=== PATIENT | female | born 2000 | race Caucasian/White ===

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

== ENCOUNTER 2020-08-21 16:49 | Emergency (ER) | payer BC ==
[~2020-08-21] VITALS: Ht 160 cm; Wt 45.5 kg
[2020-08-21 17:34] LABS: STREP SCREEN NEGATIVE
[2020-08-21 18:10] VITALS: BP 126/90; PULSE 64; TEMP 97.9
== END 2020-08-21 18:10 | disposition home or self-care (01) ==
LOC: COL.ER 16:49
PROVIDERS: Emergency Medicine
DX: J02.8 Acute pharyngitis due to other specified organisms (principal); F41.0 Panic disorder [episodic paroxysmal anxiety]; F17.210 Nicotine dependence, cigarettes, uncomplicated; Z88.0 Allergy status to penicillin
CPT/HCPCS: J1100

== ENCOUNTER 2021-06-10 07:36 | Emergency (ER) | payer BC ==
[~2021-06-10] VITALS: Ht 160 cm; Wt 43.6 kg
[2021-06-10 07:48] VITALS: BP 119/77; TEMP 98
[2021-06-10] MEDS ORDERED: ZOFRAN ODT4 MG PO (08:33)
[2021-06-10 09:22] VITALS: PULSE 95
== END 2021-06-10 09:22 | disposition home or self-care (01) ==
LOC: COL.ER 07:36
DX: U07.1 COVID-19 (principal); J45.909 Unspecified asthma, uncomplicated; F17.200 Nicotine dependence, unspecified, uncomplicated

== ENCOUNTER 2021-08-21 16:47 | Emergency (ER) | payer BC ==
[~2021-08-21] VITALS: Ht 160 cm; Wt 48.6 kg
[~2021-08-21 16:47] MED LIST: ZOFRAN ODT4 MG PO
[2021-08-21 17:05] VITALS: TEMP 98.3
[2021-08-21 18:13] LABS: HEMATOCRIT 38.7 % (37.0-47.0); HEMOGLOBIN 13.7 g/dl (12.5-16.0); MEAN CELL VOLUME 84 fl (80.0-100.0); MEAN CORPUSCULAR HEMOGLOBIN 30 pg (27-31); MEAN CORPUSCULAR HGB CONC 35 g/dl (33.0-37.0); MEAN PLATELET VOLUME 9.3 fl (7.4-10.4); PLATELET COUNT 167 K/mm3 (130-400); REDCELL DISTRIBUTION WIDTH-CV 12.5 % (11.5-14.5)
[2021-08-21 18:25] LABS: COLLECTION METHOD CLEAN CATCH
[2021-08-21 18:32] LABS: ALBUMIN 4.3 gm/dL (3.5-5.0); BILIRUBIN,TOTAL 0.5 mg/dL (0.2-1.2); CALCIUM 9.5 mg/dL (8.4-10.2); CREATININE, serum 0.65 mg/dL (0.57-1.11); POTASSIUM 3.4 mmol/L (3.5-4.5)
[2021-08-21 18:36] LABS: MUCOUS Present (NOT PRESENT); PH 5 (5-8); URINE APPEARANCE Hazy (CLEAR/HAZY); URINE BACTERIA None Seen /hpf (NONE SEEN); URINE BILIRUBIN Negative (NEGATIVE); URINE BLOOD Negative (NEGATIVE); URINE COLOR Yellow (YELLOW); URINE GLUCOSE Negative (NEGATIVE); URINE KETONE 2+ (NEGATIVE); URINE LEUKOCYTE ESTERASE Negative (NEGATIVE); URINE NITRATE Negative (NEGATIVE); URINE PROTEIN(semi-quant) 1+ (NEGATIVE); URINE RBC 0-2 /hpf (0-2)
[2021-08-21 18:48] LABS: BAND 14 % (0-10); EOSINOPHIL 1 % (0-4); LYMPHOCYTE 3 % (20.0-51.0); NEUTROPHILS 76 % (42.0-75.2); PLATELET ESTIMATE NORMAL (NORMAL)
[2021-08-21 19:19] LABS: STREP SCREEN NEGATIVE
[2021-08-21] MEDS ORDERED: REGLAN 10MG10 MG/TAB PO (20:35)
[2021-08-21 20:49] VITALS: BP 98/60; PULSE 111
== END 2021-08-21 20:45 | disposition home or self-care (01) ==
LOC: COL.ER 16:47
PROVIDERS: Physician Assistant
DX: O21.9 Vomiting of pregnancy, unspecified (principal); O99.119 Other diseases of the blood and blood-forming organs and certain disorders involving the immune mechanism complicating pregnancy, unspecified trimester; D72.829 Elevated white blood cell count, unspecified; Z3A.00 Weeks of gestation of pregnancy not specified; Z20.822 Contact with and (suspected) exposure to COVID-19
CPT/HCPCS: J2765; J7030

== ENCOUNTER 2021-10-18 21:18 | Emergency (ER) | payer BC ==
[~2021-10-18 21:18] MED LIST changes: +REGLAN 10MG10 MG/TAB PO
[2021-10-18 21:23] VITALS: TEMP 97.8
[2021-10-18 21:52] LABS: BASO % 0.3 % (0.0-2.0); EOS # 0.1 K/mm3 (0.0-0.7); EOS % 0.8 % (0.0-4.0); GRAN # 6.7 K/mm3 (1.4-6.5); GRAN % 64.6 % (42.2-75.2); HEMATOCRIT 33.9 % (37.0-47.0); HEMOGLOBIN 11.5 g/dl (12.5-16.0); LYMPH # 2.7 K/mm3 (1.2-3.4); LYMPH % 26.1 % (20.0-51.0); MEAN CELL VOLUME 91 fl (80.0-100.0); MEAN CORPUSCULAR HEMOGLOBIN 31 pg (27-31); MEAN CORPUSCULAR HGB CONC 34 g/dl (33.0-37.0); MEAN PLATELET VOLUME 9.4 fl (7.4-10.4); MONO # 0.8 K/mm3 (0.1-0.6); PLATELET COUNT 166 K/mm3 (130-400); RED BLOOD COUNT 3.73 M/mm3 (4.10-5.30)
[2021-10-18 22:04] LABS: ALBUMIN 3.5 gm/dL (3.5-5.0); ANION GAP 10 mmol/L (7-16); BLOOD UREA NITROGEN 10 mg/dL (7-19); CALCIUM 9.1 mg/dL (8.4-10.2); CARBON DIOXIDE 23 mmol/L (22-29); CHLORIDE 104 mmol/L (98-107); CREATININE, serum 0.62 mg/dL (0.57-1.11); GLUCOSE 84 mg/dL (70-99); PHOSPHOROUS 4.1 mg/dL (2.3-4.7); POTASSIUM 3.8 mmol/L (3.5-4.5); SODIUM 137 mmol/L (136-145)
[2021-10-18 22:12] LABS: TROPONIN-I < 0.010 ng/mL (0.00-0.033)
[2021-10-18 22:45] VITALS: BP 107/64; PULSE 75
== END 2021-10-18 22:45 | disposition home or self-care (01) ==
LOC: COL.ER 21:18
PROVIDERS: Emergency Medicine
DX: O99.351 Diseases of the nervous system complicating pregnancy, first trimester (principal); R55 Syncope and collapse; O26.891 Other specified pregnancy related conditions, first trimester; R94.31 Abnormal electrocardiogram [ECG] [EKG]; O99.331 Smoking (tobacco) complicating pregnancy, first trimester; F17.210 Nicotine dependence, cigarettes, uncomplicated; Z3A.12 12 weeks gestation of pregnancy; Z28.310 Unvaccinated for COVID-19
CPT/HCPCS: J7030

== ENCOUNTER 2022-04-03 14:17 | Outpatient (CLI) | payer BC ==
[~2022-04-03] VITALS: Ht 162.6 cm; Wt 72.3 kg
--- NOTE | 2022-04-03 14:10 | NUR ---
Pt arrived on unit via wheelchair with concerns for contractions every couple minutes since this morning. Pt reports nausea/vomiting all day and unable to keep any food or liquids down. Pt denies any leaking of fluid or vaginal bleeding at this time and reports normal movement. EFM and toco monitors started. Vital signs WNL. SVE done by this RN . Plan of care for labor assessment reviewed.
[2022-04-03] MEDS ORDERED: PRENATAL (14:30)
[2022-04-03 15:00] VITALS: BP 123/84; PULSE 81; TEMP 97.9
[2022-04-03 16:09] LABS: COLLECTION METHOD CLEAN CATCH
[2022-04-03 16:21] LABS: MUCOUS Present (NOT PRESENT); URINE BACTERIA None Seen /hpf (NONE SEEN); URINE RBC 0-2 /hpf (0-2)
[2022-04-03 16:22] LABS: PH 7.5 (5.0-8.5); URINE APPEARANCE Clear (CLEAR/HAZY); URINE BLOOD Negative (NEGATIVE); URINE COLOR Yellow (YELLOW); URINE GLUCOSE Negative (NEGATIVE); URINE KETONE 4+ (NEGATIVE); URINE NITRATE Negative (NEGATIVE); URINE PROTEIN(semi-quant) Negative (NEGATIVE)
--- NOTE | 2022-04-03 18:20 | NUR ---
Pt reports she is feeling a little better and would like to go home to try to rest. Discharge instructions and follow up care reviewed with pt and boyfriend at the bedside. Both verbalized an understanding, agreed with the plan and states no questions or concerns.
[2022-04-04] MEDS ORDERED: IBU600 MG PO (10:37)
[2022-04-04] MEDS ORDERED: ROXICODONE 55 MG/TAB PO (10:37)
== END 2022-04-03 18:50 | disposition home or self-care (01) ==
LOC: LDRO 14:17 → LDR 14:17 → LDRO 18:50
PROVIDERS: Obstetrics & Gynecology
DX: Z34.93 Encounter for supervision of normal pregnancy, unspecified, third trimester (principal); Z3A.36 36 weeks gestation of pregnancy
CPT/HCPCS: OP; J2405; J7120

== ENCOUNTER 2022-04-03 22:28 | Inpatient (IN) | payer BC, MEDICAID ==
[~2022-04-03] VITALS: Ht 162.6 cm; Wt 72.3 kg
[~2022-04-03 22:28] MED LIST changes: +PRENATAL
--- NOTE | 2022-04-03 22:34 | NUR ---
223- PT PRESENTS TO LDR COMPLAINING OF CONTRACTIONS. TO LR5 PER WHEELCHAIR, CHANGED INTO GOWN. 224- EFM X2 APPLIED. PT REPORTS CONTRACTIONS INCREASING IN INTENSITY SINCE SHE LEFT EARLIER TONIGHT. REPORTS NO LEAKING FLUID OR VAGINAL BLEEDING. STATES SHE FEELS THE BABY MOVE AND SHE IS HAVING A LOT OF PRESSURE IN HER VAGINA. PLAN OF CARE FOR LABOR CHECK DISCUSSED AND QUESTIONS ANSWERED. PT IS CRYING. 2250- SVE BY THIS NURSE WITH BIG BULGING BAG OF ABDI. PT DOES NOT TOLERATE EXAM WELL AND HAS TO BE TALKED THROUGH AND REASSURED. PT WISHES TO GET EPIDURAL FOR PAIN MANAGEMENT. 2253- DR SPICER CALLED CHARTED. ORDERS FOR ADMISSION AND EPIDURAL. 2310- IV START TO LEFT WRIST X2 STICKS. BLOOD DRAWN FOR LAB. PT CONTINUES TO BREATH THROUGH CONTRACTIONS BUT IS ALSO CRYING AND CONTINUES TO HAVE PRESSURE. REASSURANCE PROVIDED. 2313- OBDULIA ELIAS CALLED FOR EPIDURAL PLACEMENT, STATES HE IS ON HIS WAY. 2320- NURSING ADMISSION AND HISTORY STARTED. PT STATES SHE IS STILL FEELING VAGINAL PRESSURE BUT DOES NOT WANT HER CERVIX EXAMINED AGAIN. 2324- SROM OF COPIOUS AMOUNTS OF CLEAR FLUID. PT REPORTS FEELING BETTER NOW. 2328- OBDULIA ELIAS HERE FOR EPIDURAL PLACEMENT. 2330- NURSE TAKES DELIVERY CART TO BEDSIDE AND BEGINS TO POSITION PT FOR EPIDURAL WHEN SHE NOTICES PRESENTING PART PROTRUDING FROM PT'S VAGINA. PRESENTING PART IS A FOOT COVERED IN MECONIUM. NURSE PALPATES AROUND FOOT AND HOLDS PRESSURE AGAINST IT. DISCUSSED WITH PT THE IMPORTANCE OF NOT PUSHING AT THIS TIME BECAUSE THE BABY IS BREECH. PT REQUIRES CONTINUOUS SUPPORT AND REASSURANCE TO BREATH THROUGH CONTRACTIONS AND NOT PUSH. OBDULIA ELIAS NOTIFIED AND WILL CALL DR SPICER. CHARGE NURSE NOTIFIED. 2335-CATHETER PLACED WITHOUT DIFFICULTY. 2344- OBDULIA ELIAS AT BEDSIDE AND STATES HE IS READY FOR PT IN OR. 2346- DR SPICER ARRIVES AND STATES TO HEAD TO OR. PT OFF MONITORS AND TRANSFERRED TO OR PER BED.
[2022-04-03 23:00] VITALS: BP 150/82; PULSE 100; TEMP 97.7
[2022-04-03 23:15] VITALS: BP 171/102; PULSE 97
[2022-04-03 23:25] LABS: BASO # 0.1 K/mm3 (0.0-0.2); BASO % 0.2 % (0.0-2.0); EOS % 0.1 % (0.0-4.0); GRAN # 18.1 K/mm3 (1.4-6.5); GRAN % 88.3 % (42.2-75.2); HEMOGLOBIN 11.9 g/dl (12.5-16.0); LYMPH # 1.2 K/mm3 (1.2-3.4); MEAN CELL VOLUME 87 fl (80.0-100.0); MEAN CORPUSCULAR HEMOGLOBIN 30 pg (27-31); MEAN CORPUSCULAR HGB CONC 34 g/dl (33.0-37.0); MEAN PLATELET VOLUME 10.8 fl (7.4-10.4); MONO % 4.9 % (1.7-9.3); PLATELET COUNT 172 K/mm3 (130-400); RED BLOOD COUNT 4.02 M/mm3 (4.10-5.30); REDCELL DISTRIBUTION WIDTH-CV 13.1 % (11.5-14.5)
[2022-04-03 23:30] VITALS: BP 140/83; PULSE 77
[2022-04-04] VITALS (19 sets, daily range): BP systolic 122–154; BP diastolic 77–103; PULSE 82–147; TEMP 97.7–98.5
[2022-04-04 02:47] LABS: TRICYCLIC ANTIDEPRESS URINE NEGATIVE
--- NOTE | 2022-04-04 05:15 | NUR ---
0515- IV TO SALINE LOCK. PERICARE WITH CLEAN PAD PROVIDED. BINDER IN PLACE. PT WOULD LIKE TO WAIT UNTIL AFTER HER NEXT ROUND OF PAIN MEDICATION BEFORE SHE GETS UP TO THE BATHROOM AND GETS HER SCHERER OUT.
[2022-04-04] MEDS ORDERED: ROXICODONE 55 MG/TAB PO (10:37)
[2022-04-04] MEDS ORDERED: IBU600 MG PO (10:37)
--- NOTE | 2022-04-04 12:52 | NUR ---
[employer] Truck Driver offered congrats while family was in room.
--- NOTE | 2022-04-05 03:57 | NUR ---
PAIN MED[facility] BE ADMIN[facility]ED [facility] D[facility] TO DAYLIGHT SAVINGS TIME.
[2022-04-05 06:45] VITALS: BP 128/86; PULSE 85; TEMP 98
== END 2022-04-05 15:40 | disposition home or self-care (01) | DRG 787 ==
LOC: LDRO 22:28 → LDR 22:57 → OB 04-04 02:00
PROVIDERS: Obstetrics & Gynecology; ADMIT Student in an Organized Health Care Education/Training Program
PROC: 10D00Z1 Extraction of Products of Conception, Low, Open Approach (ICD-10-PCS; principal; 2022-04-04)
PROC: 0UQ90ZZ Repair Uterus, Open Approach (ICD-10-PCS; 2022-04-04)
DX: O32.8XX0 Maternal care for other malpresentation of fetus, not applicable or unspecified (principal); O60.10X0 Preterm labor with preterm delivery, unspecified trimester, not applicable or unspecified; O99.324 Drug use complicating childbirth; O99.344 Other mental disorders complicating childbirth; J45.909 Unspecified asthma, uncomplicated; O99.52 Diseases of the respiratory system complicating childbirth; F41.9 Anxiety disorder, unspecified; F32.A Depression, unspecified; O99.334 Smoking (tobacco) complicating childbirth; F17.210 Nicotine dependence, cigarettes, uncomplicated; F12.90 Cannabis use, unspecified, uncomplicated; Z88.0 Allergy status to penicillin; Z23 Encounter for immunization; Z3A.36 36 weeks gestation of pregnancy; Z37.0 Single live birth
CPT/HCPCS: J0171; J0690; J1100; J1885; J2405; J2590; J2710; J3010; J7120

== ENCOUNTER 2024-01-16 03:10 | Emergency (ER) | payer MEDICAID ==
[~2024-01-16] VITALS: Ht 160 cm; Wt 50.9 kg
[~2024-01-16 03:10] MED LIST changes: +IBU600 MG PO; +MACROBID 1100 MG/CAP PO; +ROXICODONE 55 MG/TAB PO
[2024-01-16 03:16] VITALS: TEMP 98.9
[2024-01-16 03:46] LABS: BASO % 0.2 % (0.0-2.0); EOS % 0.2 % (0.0-4.0); GRAN # 9.3 K/mm3 (1.4-6.5); GRAN % 71.2 % (42.2-75.2); HEMOGLOBIN 10.3 g/dl (12.5-16.0); LYMPH # 2.6 K/mm3 (1.2-3.4); LYMPH % 20.2 % (20.0-51.0); MEAN CELL VOLUME 89 fl (80.0-100.0); MEAN CORPUSCULAR HEMOGLOBIN 30 pg (27-31); MEAN CORPUSCULAR HGB CONC 34 g/dl (33.0-37.0); MEAN PLATELET VOLUME 9.2 fl (7.4-10.4); MONO % 7.8 % (1.7-9.3); PLATELET COUNT 191 K/mm3 (130-400); RED BLOOD COUNT 3.41 M/mm3 (4.10-5.30); REDCELL DISTRIBUTION WIDTH-CV 13.5 % (11.5-14.5)
[2024-01-16 03:50] LABS: HEMATOCRIT 30.5 % (37.0-47.0)
[2024-01-16 03:57] LABS: COLLECTION METHOD CLEAN CATCH
[2024-01-16 04:02] LABS: PH 5.5 (5.0-8.5); URINE APPEARANCE CLEAR (CLEAR/HAZY); URINE BLOOD 3+ (NEGATIVE); URINE COLOR YELLOW (YELLOW); URINE GLUCOSE NEGATIVE (NEGATIVE); URINE KETONE 2+ (NEGATIVE); URINE NITRATE NEGATIVE (NEGATIVE); URINE PROTEIN(semi-quant) 1+ (NEGATIVE)
[2024-01-16 05:11] VITALS: BP 117/64; PULSE 76
== END 2024-01-16 05:13 | disposition home or self-care (01) ==
LOC: COL.ER 03:10
PROVIDERS: Emergency Medicine
DX: O20.0 Threatened abortion (principal); Z3A.13 13 weeks gestation of pregnancy

== ENCOUNTER 2024-02-08 07:24 | Emergency (ER) | payer MEDICAID ==
[~2024-02-08] VITALS: Ht 160 cm; Wt 52.3 kg
[2024-02-08 07:37] VITALS: TEMP 97.9
[2024-02-08] MEDS ORDERED: NS 1,000 ML IV ONE ×2 (08:00→10:30)
[2024-02-08] MEDS ORDERED: Ondansetron 4 MG/2 ML VIAL IV ONE (08:00)
[2024-02-08 08:26] LABS: BASO % 0.3 % (0.0-2.0); EOS % 0.1 % (0.0-4.0); GRAN # 10.1 K/mm3 (1.4-6.5); GRAN % 86.8 % (42.2-75.2); HEMOGLOBIN 11.3 g/dl (12.5-16.0); LYMPH # 0.5 K/mm3 (1.2-3.4); LYMPH % 4.3 % (20.0-51.0); MEAN CELL VOLUME 88 fl (80.0-100.0); MEAN CORPUSCULAR HEMOGLOBIN 31 pg (27-31); MEAN CORPUSCULAR HGB CONC 35 g/dl (33.0-37.0); MEAN PLATELET VOLUME 9.2 fl (7.4-10.4); MONO # 0.9 K/mm3 (0.1-0.6); PLATELET COUNT 202 K/mm3 (130-400); RED BLOOD COUNT 3.71 M/mm3 (4.10-5.30); REDCELL DISTRIBUTION WIDTH-CV 13.4 % (11.5-14.5)
[2024-02-08 08:28] LABS: HEMATOCRIT 32.6 % (37.0-47.0)
[2024-02-08 09:32] LABS: ALBUMIN 3.5 g/dL (3.5-5.0); BILIRUBIN,TOTAL 0.3 mg/dL (0.2-1.2); CALCIUM 9.7 mg/dL (8.4-10.2); CREATININE, serum 0.64 mg/dL (0.57-1.11); POTASSIUM 3.4 mEq/L (3.5-4.5); TOTAL PROTEIN 7.6 g/dl (6.2-8.1)
[2024-02-08] MEDS ORDERED: ZOFRAN ODT4 MG PO (10:47)
[2024-02-08 11:49] VITALS: BP 112/73; PULSE 99
== END 2024-02-08 11:49 | disposition home or self-care (01) ==
LOC: COL.ER 07:24
PROVIDERS: Personal Emergency Response Attendant
DX: O21.9 Vomiting of pregnancy, unspecified (principal); Z3A.17 17 weeks gestation of pregnancy
CPT/HCPCS: J2405; J7030

== ENCOUNTER 2024-03-13 11:29 | Outpatient (CLI) | payer MEDICAID ==
[~2024-03-13] VITALS: Ht 162.6 cm; Wt 52.3 kg
[2024-03-13 11:58] LABS: BASO # 0.1 K/mm3 (0.0-0.2); BASO % 0.3 % (0.0-2.0); EOS # 0.1 K/mm3 (0.0-0.7); EOS % 0.5 % (0.0-4.0); GRAN # 14.4 K/mm3 (1.4-6.5); LYMPH # 2.3 K/mm3 (1.2-3.4); LYMPH % 12.8 % (20.0-51.0); MEAN CELL VOLUME 89 fl (80.0-100.0); MEAN CORPUSCULAR HGB CONC 33 g/dl (33.0-37.0); MEAN PLATELET VOLUME 9.4 fl (7.4-10.4); MONO # 1.1 K/mm3 (0.1-0.6); MONO % 5.9 % (1.7-9.3); PLATELET COUNT 243 K/mm3 (130-400); RED BLOOD COUNT 3.12 M/mm3 (4.10-5.30); REDCELL DISTRIBUTION WIDTH-CV 13.5 % (11.5-14.5)
[2024-03-13 11:59] LABS: HEMATOCRIT 27.6 % (37.0-47.0); HEMOGLOBIN 9.2 g/dl (12.5-16.0); MEAN CORPUSCULAR HEMOGLOBIN 29 pg (27-31)
[2024-03-13] MEDS ORDERED: Morphine 4 MG/ML VIAL IV ONE (12:00)
[2024-03-13] MEDS ORDERED: Ondansetron 4 MG/2 ML VIAL IV ONE (12:00)
[2024-03-13] MEDS ORDERED: NS 500 ML IV ONE (12:00)
[2024-03-13 12:18] LABS: ALBUMIN 2.9 g/dL (3.5-5.0); BILIRUBIN,TOTAL 0.2 mg/dL (0.2-1.2); CALCIUM 9.3 mg/dL (8.4-10.2); CREATININE, serum 0.55 mg/dL (0.57-1.11); TOTAL PROTEIN 6.7 g/dl (6.2-8.1)
--- NOTE | 2024-03-13 12:20 | NUR ---
1220- Pt arrives on unit via gurney from ED. Pt transfers to OB bed. 1226- EFM and TOCO on. O2 sat monitor on and tracing maternal HR. VSS. Assessments completed by this RN. Pt states she came into ER with complaints of cramping. She currently has some bright red/brown vaginal bleeding but this was evaluated at the [facility] 10 days ago where she inpatient for 3 days. It was determined the bleeding was stable and she was discharged home. Pt states the bleeding has never stopped but has improved since her discharge. Pt report intermittent cramping, UCs palpate moderate by this RN. Pt coping well with contractions, able to talk and breathe through them. Denies LOF. 1247- Roles at bedside, discusses plan to transfer Pt to [facility] in [place]. Pt agreeable to plan, denies questions.
[2024-03-13 13:00] VITALS: BP 109/58; PULSE 66; TEMP 98.1
[2024-03-13] MEDS ORDERED: LR 1,000 ML IV PRN (13:00)
[2024-03-13] MEDS ORDERED: Betamethasone Acetate/Na Phos 6 MG/ML 5 ML MDV IM ONE (13:00)
[2024-03-13 13:19] VITALS: BP 122/58; PULSE 77
--- NOTE | 2024-03-13 13:19 | NUR ---
1319- Pt up to void, EFM and TOCO off. While Pt in bathroom, transport team to room. Verbal report provided, questions answered. Pt onto gurney and settled by transport team. 1332- Pt escorted off unit in care of transport team. 1345- Telephone report given to Jean at [facility].
== END 2024-03-13 13:32 | disposition short-term general hospital (02) ==
LOC: LDRO 11:29 → COL.ER 11:29 → LDR 12:14 → COL.ER 12:14 → LDRO 12:14 → LDR 13:32 → EDSTATUS 16:28
PROVIDERS: Personal Emergency Response Attendant
DX: O46.92 Antepartum hemorrhage, unspecified, second trimester (principal); Z3A.21 21 weeks gestation of pregnancy
CPT/HCPCS: J0702; J7120